=== PATIENT | male | born 1975 | race Caucasian/White ===

== ENCOUNTER 2021-03-17 13:12 | Emergency (ER) | payer MEDICAID ==
[~2021-03-17] VITALS: Ht 180.3 cm; Wt 100.0 kg
[2021-03-17] MEDS ORDERED: LORAZEPAM 1MG TABLET PO ONE (14:15)
[2021-03-17] MEDS ORDERED: LORA-250 MT (14:58)
[2021-03-17 15:17] VITALS: BP 139/97
== END 2021-03-17 15:18 | disposition home or self-care (01) ==
LOC: ER 13:12
DX: F41.9 Anxiety disorder, unspecified (principal); F43.9 Reaction to severe stress, unspecified; E11.9 Type 2 diabetes mellitus without complications; I10 Essential (primary) hypertension
CPT/HCPCS: 99283

== ENCOUNTER 2021-07-22 17:42 | Emergency (ER) | payer MEDICAID ==
[~2021-07-22] VITALS: Ht 180.3 cm; Wt 100.0 kg
[~2021-07-22 17:42] MED LIST: LORA-250 MT
[2021-07-22] MEDS ORDERED: CLIN300C12 MT (20:39)
[2021-07-22 22:08] VITALS: BP 130/81
== END 2021-07-22 22:10 | disposition home or self-care (01) ==
LOC: ER 17:42
DX: L02.821 Furuncle of head [any part, except face] (principal); I10 Essential (primary) hypertension; E11.9 Type 2 diabetes mellitus without complications; F41.9 Anxiety disorder, unspecified; Z98.890 Other specified postprocedural states
CPT/HCPCS: 99283

== ENCOUNTER 2021-08-18 06:17 | Emergency (ER) | payer MEDICAID ==
[~2021-08-18] VITALS: Ht 180.3 cm; Wt 100.0 kg
[~2021-08-18 06:17] MED LIST changes: +CLIN300C12 MT
[2021-08-18] MEDS ORDERED: ONDANSETRON HCL 4MG/2ML INJ IV STA (07:09)
[2021-08-18] MEDS ORDERED: KETOROLAC 30MG/ML VIAL IV STA (07:09)
[2021-08-18] MEDS ORDERED: ACETAMINOPHEN 325MG TABLET PO STA (07:09)
[2021-08-18] MEDS ORDERED: SODIUM CHLORIDE 0.9% 1,000 ML IV ONE (07:15)
[2021-08-18 07:23] VITALS: BP 168/113
[2021-08-18 07:40] LABS: CHLORIDE 109 mEq/L (98-107)
== END 2021-08-18 08:35 | disposition home or self-care (01) ==
LOC: ER 06:17
DX: R51.9 Headache, unspecified (principal); R11.2 Nausea with vomiting, unspecified; R19.7 Diarrhea, unspecified; I10 Essential (primary) hypertension; E11.9 Type 2 diabetes mellitus without complications; F10.229 Alcohol dependence with intoxication, unspecified; Y90.0 Blood alcohol level of less than 20 mg/100 ml
CPT/HCPCS: 36415; 80048; 96361; 96374; 96375; 99284; J1885; J2405; J7030